=== PATIENT | male | born 1965 | race American Indian/Alaskan Native ===

== ENCOUNTER 2017-05-29 13:09 | Emergency (ER) | payer OTHER ==
[2017-05-29] MEDS ORDERED: DUONEB *Not for PRN Use IH ONE (15:36)
--- NOTE | 2017-05-29 15:38 | Emergency Department Report ---
Chief Complaint: Upper Respiratory Infection Stated Complaint: FLU SYMPTOMS - HPI History of Present Illness: 52-year-old male presents with 24-hour history of subjective fever, productive cough, body aches and "flulike symptoms." He has a tobacco smoker and occasional marijuana smoker. No recent travel, immobility, surgery. No sick contacts at home. He does not have a PCP and has not seen one in "many years." He has tried some Aleve for his symptoms including earlier today. - ROS Review of Systems: Patient is positive for cough, subjective fever, body aches, vomiting Patient is negative for shortness of breath, chest pain, rash - Exam Vital Signs: Vital Signs 05/29/17 13:13 Temperature 97.9 F Pulse Rate 88 Respiratory 16 Rate Blood Pressure 144/95 O2 Sat by Pulse 98 Oximetry Physical Exam: Patient is awake and alert and does not appear in any acute distress. MSE screening note: Focused history and physical exam performed. Due to findings the following was ordered: I have ordered a 2 view chest x-ray and ordered a DuoNeb treatment. He will remain on the fast track side and will be seen by one of the mid-level providers. ED Disposition for MSE Condition: Stable
--- NOTE | 2017-05-29 17:22 | XRay Report ---
FINAL REPORT PROCEDURE: XR CHEST ROUTINE 2V TECHNIQUE: PA and lateral chest radiographs were obtained. CPT 63387 HISTORY: Cough. COMPARISON: No prior studies are available for comparison. FINDINGS: Heart: Normal. Mediastinum/Vessels: Mild aortic tortuosity. Lungs/Pleural space: Subtle ill-defined opacity in the left lower lobe. Bony thorax: No acute osseous abnormality. Other: IMPRESSION: Subtle ill-defined opacity in left lower lobe, could be related to patient rotation but consider subtle pneumonitis/bronchitis.
[2017-05-29] MEDS ORDERED: ROCEPHIN IM ONE (17:49)
[2017-05-29] MEDS ORDERED: XYLOCAINE 1% MPF 5 mL INFILTRATI ONE (17:49)
[2017-05-29] MEDS ORDERED: MOTRIN PO ONE (17:52)
[2017-05-29] MEDS ORDERED: TESSALON PERLES PO ONE (17:52)
--- NOTE | 2017-05-29 17:52 | Emergency Department Report ---
- General Chief Complaint: Upper Respiratory Infection Stated Complaint: FLU SYMPTOMS Time Seen by Provider: 05/29/17 15:39 Source: patient Mode of arrival: Ambulatory Limitations: No Limitations - History of Present Illness Initial Comments: This is a 52-year-old male nontoxic, well nourished in appearance, no acute signs of distress presents to the ED with c/o of productive cough, subjective fever, chills, body aches, rhinorrhea, nasal congestion x2 days. Patient describes productive cough as yellow mucus production. Patient agrees to sick contact with cousin which has the flu. Patient denies any recent travels, long car, recent hospital stays. Patient denies any calf pain or calf tenderness. Patient denies any chest pain, short of breath, fever, chills, nausea, vomiting , hemoptysis, numbness, tingling, headache or stiff neck. Patient denies any allergies. MD Complaint: fever, cough, rhinorrhea, nasal congestion -: days(s) (2) Severity: mild Severity scale (0 -10): 8 Quality: aching Consistency: constant Improves With: nothing Worsens With: nothing Associated Symptoms: fever, chills, rhinorrhea, nasal congestion, cough. denies : myalgias, diaphoresis, headache, sore throat, stiff neck, chest pain, shortness of breath, abdominal pain, nausea, vomiting, diarrhea, dysuria, rash, confusion, right sweats, weight loss, epistaxis, hoarseness, ear pain Treatments Prior to Arrival: none - Related Data Previous Rx's Medication Instructions Recorded Last Taken Type Azithromycin [Zithromax Z-BERNICE] 250 mg PO DAILY #6 tablet 05/29/17 Unknown Rx Benzonatate [Tessalon Perle] 100 mg PO Q6H PRN #20 capsule 05/29/17 Unknown Rx Ibuprofen [Motrin] 600 mg PO Q8H PRN #30 tablet 05/29/17 Unknown Rx Oseltamivir [Tamiflu] 75 mg PO BID #14 cap 05/29/17 Unknown Rx predniSONE [Deltasone] 40 mg PO QDAY #5 tab 05/29/17 Unknown Rx Allergies Allergy/AdvReac Type Severity Reaction Status Date / Time No Known Allergies Allergy Unverified 09/05/15 10:17 ED Review of Systems ROS: Stated complaint: FLU SYMPTOMS Other details as noted in HPI Constitutional: chills, fever Eyes: denies: eye pain, eye discharge, vision change ENT: denies: ear pain, throat pain Respiratory: cough. denies: shortness of breath, wheezing Cardiovascular: denies: chest pain, palpitations Endocrine: no symptoms reported Gastrointestinal: denies: abdominal pain, nausea, diarrhea Genitourinary: denies: urgency, dysuria Musculoskeletal: denies: back pain, joint swelling, arthralgia Skin: denies: rash, lesions Neurological: denies: headache, weakness, paresthesias Psychiatric: denies: anxiety, depression Hematological/Lymphatic: denies: easy bleeding, easy bruising ED Past Medical Hx - Past Medical History Previous Medical History?: No - Surgical History Past Surgical History?: No - Social History Smoking Status: Current Every Day Smoker Substance Use Type: Alcohol, Marijuana - Medications Home Medications: Home Medications Medication Instructions Recorded Confirmed Last Taken Type Azithromycin [Zithromax Z-BERNICE] 250 mg PO DAILY #6 tablet 05/29/17 Unknown Rx Benzonatate [Tessalon Perle] 100 mg PO Q6H PRN #20 capsule 05/29/17 Unknown Rx Ibuprofen [Motrin] 600 mg PO Q8H PRN #30 tablet 05/29/17 Unknown Rx Oseltamivir [Tamiflu] 75 mg PO BID #14 cap 05/29/17 Unknown Rx predniSONE [Deltasone] 40 mg PO QDAY #5 tab 05/29/17 Unknown Rx ED Physical Exam - General Limitations: No Limitations General appearance: alert, in no apparent distress - Head Head exam: Present: atraumatic, normocephalic - Eye Eye exam: Present: normal appearance, PERRL, EOMI Pupils: Present: normal accommodation - ENT ENT exam: Present: normal exam, normal orophraynx, mucous membranes moist, TM's normal bilaterally, normal external ear exam - Neck Neck exam: Present: normal inspection, full ROM. Absent: tenderness, meningismus, lymphadenopathy, thyromegaly - Respiratory Respiratory exam: Present: normal lung sounds bilaterally. Absent: respiratory distress, wheezes, rales, rhonchi, stridor, chest wall tenderness, accessory muscle use, decreased breath sounds, prolonged expiratory - Cardiovascular Cardiovascular Exam: Present: regular rate, normal rhythm, normal heart sounds. Absent: bradycardia, tachycardia, irregular rhythm, systolic murmur, diastolic murmur, rubs, gallop - GI/Abdominal GI/Abdominal exam: Present: soft, normal bowel sounds. Absent: distended, tenderness, guarding, rebound, rigid, diminished bowel sounds - Rectal Rectal exam: Present: deferred - Extremities Exam Extremities exam: Present: normal inspection, full ROM, normal capillary refill. Absent: tenderness, pedal edema, joint swelling, calf tenderness - Back Exam Back exam: Present: normal inspection, full ROM. Absent: tenderness, CVA tenderness (R), CVA tenderness (L), muscle spasm, paraspinal tenderness, vertebral tenderness, rash noted - Neurological Exam Neurological exam: Present: alert, oriented X3, CN II-XII intact, normal gait, reflexes normal - Psychiatric Psychiatric exam: Present: normal affect, normal mood - Skin Skin exam: Present: warm, dry, intact, normal color. Absent: rash ED Course Vital Signs 05/29/17 13:13 Temperature 97.9 F Pulse Rate 88 Respiratory 16 Rate Blood Pressure 144/95 O2 Sat by Pulse 98 Oximetry - Reevaluation(s) Reevaluation #1: 05/29/17 17:55 Patient is speaking in full sentences with no signs of distress noted. - Consultations Consultation #1: 05/29/17 17:55 Patient has been consulted with Dr. Dickens about patient history, physical exam, and labs and examined and screened patient and agrees to ED plan of care and discharge plan of care. ED Medical Decision Making - Medical Decision Making This is a 52-year-old male that presents with PNA and influenza. Patient is stable and was examined by me. Chest x-ray has been obtained and dictated by radiologist with possible PNA. Patient is notified of x-ray results with no questions noted. Due to patient having symptoms of PNA and symptoms of influenza and worsening I will treat patient empirically Tamiflu with zpak. Patient is within the >72 hour window for tamiflu. Patient was instructed to increase hydration, rest and take Motrin for fever episodes. Patient received 1G Rocehine IM, motrin and tesslone perrls in the ED. Vitals stable. Patient is nonfebrile and normal heart rate. Patient was orally hydrated and patient tolerated well known nausea or vomiting. Patient was instructed Follow-up with a primary care doctor in 3-5 days or if symptoms worsen and continue return to emergency room as soon as possible. At time time of discharge, the patient does not seem toxic or ill in appearance. No acute signs of distress noted. Patient agrees to discharge treatment plan of care. No further questions noted by the patient. Critical care attestation.: If time is entered above; I have spent that time in minutes in the direct care of this critically ill patient, excluding procedure time. ED Disposition Clinical Impression: Influenza PNA (pneumonia) Qualifiers: Pneumonia type: due to unspecified organism Laterality: left Lung location: lower lobe of lung Qualified Code(s): J18.1 - Lobar pneumonia, unspecified organism Disposition: DC- TO HOME OR SELFCARE Is pt being admited?: No Does the pt Need Aspirin: No Condition: Stable Instructions: Bacterial Pneumonia (ED), Influenza (ED), Oseltamivir (By mouth) , Ibuprofen (By mouth), Electrolyte Supplement (By mouth) Additional Instructions: Follow-up with a primary care doctor in 3-5 days or if symptoms worsen and continue return to emergency room as soon as possible. Increase rest, hydration, and take Motrin as prescribed for Fever. Prescriptions: Azithromycin [Zithromax Z-BERNICE] 250 mg PO DAILY #6 tablet Benzonatate [Tessalon Perle] 100 mg PO Q6H PRN #20 capsule PRN Reason: Cough Ibuprofen [Motrin] 600 mg PO Q8H PRN #30 tablet PRN Reason: Fever Oseltamivir [Tamiflu] 75 mg PO BID #14 cap predniSONE [Deltasone] 40 mg PO QDAY #5 tab Referrals: PRIMARY CAREMD [Primary Care Provider] - 3-5 Days FATIMAH PERKINS MD [Staff Physician] - 3-5 Days [facility] [Outside] - 3-5 Days [facility] [Outside] - 3-5 Days Forms: Work/School Release Form(ED)
[2017-05-29 18:49] VITALS: BP 136/95
== END 2017-05-29 18:49 | disposition home or self-care (01) ==
LOC: ED 13:09
DX: J11.1 Influenza due to unidentified influenza virus with other respiratory manifestations (principal); J18.1 Lobar pneumonia, unspecified organism; F17.200 Nicotine dependence, unspecified, uncomplicated; F12.10 Cannabis abuse, uncomplicated
CPT/HCPCS: 71046; 94640; 96372; 99283; J0696